=== PATIENT | male | born 1990 | race Caucasian/White ===

== ENCOUNTER 2018-04-26 19:22 | Emergency (ER) | payer SELFPAY ==
[2018-04-26 19:41] VITALS: BP 150/56
--- NOTE | 2018-04-26 19:56 | UC ---
Skin Complaint HPI - HPI Summary HPI Summary: Pt presents with rash to left forearm that is itchy and blistered. Pt has known contact with poison juany. - History of Current Complaint Chief Complaint: UCSkin Time Seen by Provider: 04/26/18 19:38 Stated Complaint: SKIN COMPLAINT Hx Obtained From: Patient Onset/Duration: Sudden Onset, Lasting Days, Still Present Skin Exposure Onset/Duration: Days Ago Timing: Constant Onset Severity: Mild Current Severity: Moderate Pain Intensity: 4 Location: Discrete Character: Pruritus, Redness, Raised Aggravating Factor(s): Touch Alleviating Factor(s): Nothing Associated Signs & Symptoms: Positive: Rash Related History: Possible Reaction to: Environmental Exposure - Allergy/Home Medications Allergies/Adverse Reactions: Allergies Allergy/AdvReac Type Severity Reaction Status Date / Time No Known Allergies Allergy Verified 04/26/18 19:33 Review of Systems Constitutional: Negative Skin: Rash Eyes: Negative ENT: Negative Respiratory: Negative Cardiovascular: Negative Gastrointestinal: Negative Genitourinary: Negative Motor: Negative Neurovascular: Negative Musculoskeletal: Negative Neurological: Negative Psychological: Negative Is Patient Immunocompromised?: No All Other Systems Reviewed And Are Negative: Yes PMH/Surg Hx/FS Hx/Imm Hx Previously Healthy: Yes - Surgical History Surgical History: Yes Surgery Procedure, Year, and Place: RIGHT meniscus. RIGHT 3rd fingertip amp - Family History Known Family History: Positive: Cardiac Disease - Social History Occupation: Employed Full-time Lives: With Family Alcohol Use: Occasionally Substance Use Type: None Smoking Status (MU): Heavy Every Day Tobacco Smoker Type: Cigarettes Amount Used/How Often: 1 PPD Have You Smoked in the Last Year: Yes - Immunization History Most Recent Tetanus Shot: UTD Physical Exam Triage Information Reviewed: Yes Appearance: Well-Appearing Vital Signs: Initial Vital Signs Temp 98.2 F 04/26/18 19:33 Pulse 77 04/26/18 19:33 Resp 16 04/26/18 19:33 BP 150/56 04/26/18 19:33 Pulse Ox 99 04/26/18 19:33 Vital Signs Reviewed: Yes Eye Exam: Normal ENT Exam: Normal Dental Exam: Normal Neck exam: Normal Respiratory: Positive: No respiratory distress Musculoskeletal Exam: Normal Neurological Exam: Normal Psychological Exam: Normal Skin: Positive: rashes - left forearm, mild erythematous with scattered fluid filled blisters, some intact and some open and draining clear fluid Course/Dx - Differential Diagnoses - Skin Complaint Differential Diagnoses: Contact Dermatitis, Poison Juany - Diagnoses Provider Diagnoses: poison juany Discharge - Sign-Out/Discharge Documenting (check all that apply): Patient Departure - Discharge Plan Condition: Stable Disposition: HOME Prescriptions: predniSONE TAB* [Deltasone 10 MG TAB*] 40 mg PO DAILY #13 tab Patient Education Materials: Antihistamine (By mouth), Poison Juany (ED) Forms: *Work Release Referrals: [facility] [place] [facility] REFERRAL [Outside] - If Needed No Primary Care Phys,NOPCP [Primary Care Provider] - Additional Instructions: Per institutional requirements, I have reviewed the chart, however, I was not consulted specifically or made aware of this patient by the above midlevel provider. I did not personally evaluate, interact with , or disposition this patient. - Billing Disposition and Condition Condition: STABLE Disposition: Home
== END 2018-04-26 20:04 | disposition home or self-care (01) ==
LOC: UCCORT 19:22
DX: L23.7 Allergic contact dermatitis due to plants, except food (principal); T63.791A Toxic effect of contact with other venomous plant, accidental (unintentional), initial encounter; Y92.9 Unspecified place or not applicable; F17.210 Nicotine dependence, cigarettes, uncomplicated
CPT/HCPCS: 99202; G0463

== ENCOUNTER 2019-02-22 18:10 | Emergency (ER) | payer OTHER ==
[2019-02-22 18:56] VITALS: BP 127/78
--- NOTE | 2019-02-22 19:54 | ED ---
GI/ HPI - HPI Summary HPI Summary: pt presents to the for evalution of possible STD. he states that he noticed sores to his penis. they do not hurt.. they do not itch. he has a new sexual partner for 3 weeks. 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 - History of Current Complaint Chief Complaint: UCGeneralIllness Stated Complaint: PERSONAL Hx Obtained From: Patient Onset/Duration: Started Days Ago Timing: Constant Severity: Mild Current Severity: Mild Pain Intensity: 0 - Allergy/Home Medications Allergies/Adverse Reactions: Allergies Allergy/AdvReac Type Severity Reaction Status Date / Time No Known Allergies Allergy Verified 02/22/19 18:54 Home Medications: Home Medications NK [No Home Medications Reported] 02/22/19 [History Confirmed 02/22/19] PMH/Surg Hx/FS Hx/Imm Hx Previously Healthy: Yes - Surgical History Surgery Procedure, Year, and Place: RIGHT meniscus. RIGHT 3rd fingertip amp Infectious Disease History: No Infectious Disease History: Denies: Traveled Outside the [place] in Last 30 Days - Family History Known Family History: Positive: Cardiac Disease - Social History Alcohol Use: Occasionally Substance Use Type: Reports: None Smoking Status (MU): Former Smoker Type: Cigarettes Amount Used/How Often: 1 PPD Have You Smoked in the Last Year: Yes Review of Systems Constitutional: Negative Eyes: Negative ENT: Negative Positive: Other Respiratory: Negative Gastrointestinal: Negative Positive: other - lesions to penis Musculoskeletal: Negative Positive: Rash - to penis Neurological: Negative Psychological: Normal All Other Systems Reviewed And Are Negative: No Physical Exam Triage Information Reviewed: Yes Vital Signs On Initial Exam: Initial Vitals Temp Pulse Resp BP Pulse Ox 97.7 F 67 16 127/78 100 02/22/19 18:54 02/22/19 18:54 02/22/19 18:54 02/22/19 18:54 02/22/19 18:54 Vital Signs Reviewed: Yes Appearance: Positive: Well-Appearing, No Pain Distress, Well-Nourished Skin: Positive: Warm, Dry, Lymphangitis - there are very small and multiple minimally raised lesions to his penis just proximal to the glans. they are not herpetic. there is no ulcerating base. Eyes: Positive: Normal, EOMI ENT: Positive: Hearing grossly normal Neck: Positive: Supple, Nontender Respiratory/Lung Sounds: Positive: Clear to Auscultation, Breath Sounds Present Cardiovascular: Positive: Normal Abdomen Description: Positive: Nontender, Soft Bowel Sounds: Positive: Present Musculoskeletal: Positive: Normal, Strength/ROM Intact Neurological: Positive: Normal, Sensory/Motor Intact, Alert, Oriented to Person Place, Time, CN Intact II-III Psychiatric: Positive: Normal AVPU Assessment: Alert Diagnostics - Vital Signs Vital Signs Temp Pulse Resp BP Pulse Ox 02/22/19 18:54 97.7 F 67 16 127/78 100 - Laboratory Lab Statement: Any lab studies that have been ordered have been reviewed, and results considered in the medical decision making process. GIGU Course/Dx - Course Course Of Treatment: pt has a new sexual partner. he is concerned he has an std. clinically, it does not look like herpes. he states he has had warts/hpv in the past and they started like these small little sores. I discussed with him that they are too small to really characterize. i offered to test him for gc/chlamydia. he deferred. he states that he knows he does not have it. he has a cream for hpv. he states he will start using. i encouraged him to choose sexual partners wisely and to always wear a condom. i further encouraged him to f/u with pcp. - Diagnoses Provider Diagnoses: STD (sexually transmitted disease) Discharge - Sign-Out/Discharge Documenting (check all that apply): Patient Departure All imaging exams completed and their final reports reviewed: No Studies - Discharge Plan Condition: Stable Disposition: HOME Patient Education Materials: Sexually Transmitted Diseases (ED) Referrals: No Primary Care Phys,NOPCP [Primary Care Provider] - [facility] [Provider Group] Additional Instructions: Please follow up with your primary care physician. if you do not have one, I have given you a referral on your discharge papers. return if worse or any new symptoms. - Billing Disposition and Condition Condition: STABLE Disposition: Home
== END 2019-02-22 20:05 | disposition home or self-care (01) ==
LOC: UCCORT 18:10
DX: A64 Unspecified sexually transmitted disease (principal); Z87.891 Personal history of nicotine dependence
CPT/HCPCS: 99211; G0463

== ENCOUNTER 2019-06-06 19:36 | Emergency (ER) | payer OTHER ==
[2019-06-06 21:01] VITALS: BP 130/80
--- NOTE | 2019-06-06 21:48 | UC ---
Complaint Male HPI - HPI Summary HPI Summary: 29-year-old male who has had some dysuria over the past 2 days. He has a history of urinary tract infections. He states occasionally he will have a fever but mostly nausea and just doesn't feel well and this is how he feels when he usually has a urinary tract infection. He denies any penile discharge. - History of Current Complaint Chief Complaint: UCGI Stated Complaint: UPSET STOMACH Time Seen by Provider: 06/06/19 21:41 Hx Obtained From: Patient Onset/Duration: Gradual Onset Timing: Intermittent Severity Initially: Mild Severity Currently: Mild Pain Intensity: 0 Location: None Character: Burning - Burning on urination. Associated Signs And Symptoms: Positive: Fever - Occasional fever and chills., Dysuria, Nausea - Patient states he usually feels nausea when he has a urinary tract infection.. Negative: Penile Swelling, Penile Discharge - Allergies/Home Medications Allergies/Adverse Reactions: Allergies Allergy/AdvReac Type Severity Reaction Status Date / Time No Known Allergies Allergy Verified 06/06/19 20:52 Home Medications: Home Medications Ondansetron HCl [Zofran] 2 tab BID PRN 06/06/19 [History Confirmed 06/06/19] PMH/Surg Hx/FS Hx/Imm Hx Previously Healthy: Yes - Surgical History Surgical History: Yes Surgery Procedure, Year, and Place: RIGHT meniscus. RIGHT 3rd fingertip amp - Family History Known Family History: Positive: Cardiac Disease - Social History Alcohol Use: Daily Alcohol Amount: 12 pack/night Substance Use Type: None Smoking Status (MU): Heavy Every Day Tobacco Smoker Type: Cigarettes Amount Used/How Often: 1 PPD Have You Smoked in the Last Year: Yes When Did the Patient Quit Smoking/Using Tobacco: 02/20/19 - Immunization History Most Recent Tetanus Shot: UTD Review of Systems All Other Systems Reviewed And Are Negative: Yes Constitutional: Positive: Fever - Occasional fever. Gastrointestinal: Positive: Nausea - Some nausea which patient states Genitourinary: Positive: Dysuria, Frequency. Negative: Vaginal/Penile Burning, Vaginal/Penile Itching, Vaginal/Penile Discharge, Vaginal/Penile Pain, Vaginal/ Penile Tenderness Is Patient Immunocompromised?: No Physical Exam Triage Information Reviewed: Yes Appearance: Well-Appearing, No Pain Distress, Well-Nourished Vital Signs: Initial Vital Signs Temp 97.4 F 06/06/19 20:55 Pulse 61 06/06/19 20:55 Resp 16 06/06/19 20:55 BP 130/80 06/06/19 20:55 Pulse Ox 100 06/06/19 20:55 Vital Signs Reviewed: Yes Respiratory: Positive: Lungs clear, Normal breath sounds, No respiratory distress, No accessory muscle use Cardiovascular: Positive: RRR, No Murmur, Pulses Normal, Brisk Capillary Refill Abdomen Description: Positive: Nontender, No Organomegaly, Soft. Negative: CVA Tenderness (R), CVA Tenderness (L), Distended, Guarding, Hepatomegaly, McBurney' s Point Tenderness, Splenomegaly Bowel Sounds: Positive: Present Musculoskeletal Exam: Normal Neurological Exam: Normal Psychological Exam: Normal Skin Exam: Normal Complaint Male Course/Dx - Course Course Of Treatment: Urinalysis: Negative I did send the urine for gonorrhea and chlamydia testing, low the patient states he sure he does not have any sexual transmitted disease. I gave him referral to physician referral Center to establish primary care. He's go the ER if he has any worsening symptoms. - Differential Dx/Diagnosis Provider Diagnosis: Dysuria Discharge ED - Sign-Out/Discharge Documenting (check all that apply): Patient Departure All imaging exams completed and their final reports reviewed: No Studies - Discharge Plan Condition: Good Disposition: HOME Patient Education Materials: Dysuria (ED) Referrals: No Primary Care Phys,NOPCP [Primary Care Provider] - [facility] [place] [facility] REFERRAL [Outside] Additional Instructions: Increase fluids, go to the emergency room if you develop worsening symptoms, fever, chills, vomiting. Establish care via the physician referral with a primary care provider. - Billing Disposition and Condition Condition: GOOD Disposition: Home
[2019-06-08 12:28] LABS: Chlamydia trachomatis NAA Negative (Negative); Neisseria gonorrhoeae (GC) NAA Negative (Negative)
--- NOTE | 2019-06-09 07:55 | UC ---
- Progress Note Progress Note: Patient seen here for vague UTI type symptoms. Patient's gonorrhea and Chlamydia probe came back negative today. Patient was not treated empirically and does not need to be treated per this test. No change in plan Course/Dx - Diagnoses Provider Diagnoses: Dysuria Discharge ED - Sign-Out/Discharge Documenting (check all that apply): Post-Discharge Follow Up All imaging exams completed and their final reports reviewed: No Studies - Discharge Plan Condition: Good Disposition: HOME Patient Education Materials: Dysuria (ED) Referrals: [facility] [place] [facility]IAN REFERRAL [Outside] No Primary Care Phys,NOPCP [Primary Care Provider] - Additional Instructions: Increase fluids, go to the emergency room if you develop worsening symptoms, fever, chills, vomiting. Establish care via the physician referral with a primary care provider. - Billing Disposition and Condition Condition: GOOD Disposition: Home
== END 2019-06-06 22:20 | disposition home or self-care (01) ==
LOC: UCCORT 19:36
DX: R30.0 Dysuria (principal); R50.9 Fever, unspecified; R11.0 Nausea; Z87.891 Personal history of nicotine dependence
CPT/HCPCS: 81003; 87491; 87591; 99211; G0463